=== PATIENT | male | born 1965 | race Two or more races ===

== ENCOUNTER 2017-04-27 07:29 | Emergency (ER) | payer BC ==
[~2017-04-27] VITALS: Ht 167.6 cm; Wt 117.9 kg
[~2017-04-27 07:29] MED LIST: HYDR-971 PO; NAPR-695 PO
[2017-04-27] MEDS ORDERED: KETOROLAC 60 MG/2 ML INJ. IM ONE (08:00)
[2017-04-27] MEDS ORDERED: PRED50TA PO (08:10)
[2017-04-27] MEDS ORDERED: NAPR-683 PO (08:10)
[2017-04-27] MEDS ORDERED: DIAZ5TAB PO (08:10)
--- NOTE | 2017-04-27 08:11 | PHYS DOC ---
Past Medical History Past Medical History: No Pertinent History Past Surgical History: No Surgical History Alcohol Use: Occasionally Drug Use: Marijuana Adult General Chief Complaint Chief Complaint: LOWER EXT PAIN [facility] HPI Patient is a pleasant otherwise healthy 51-year-old obese male who presents with back pain that began several days ago. One year ago he had similar symptoms on the right side of his lower back with radiation to the lateral right thigh. Today symptoms began 7 days ago while at work. He had a sharp pain in the lower back on the left with radiation from the buttocks to the lateral aspect left thigh and left calf. There is no rash, no soft tissue swelling, no direct trauma to his back it is painful just when he bends over and walks. It is described as a lancing pain with no numbness and tingling associated with it. Patient denies any night sweats, fevers, weight loss, UTI symptoms, nausea, vomiting, diarrhea. He further denies any bowel or bladder incontinence. Patient 's pain is moderate at this time. He is not taking anything [id number] to treat his symptoms. It is better with rest and mobility. Differential diagnosis of concern arrival CRAFTI Cauda Equina Renal Stone AAA ruptured Fracture Tumor (TB, metastatic disease) Infection UTI, pyelonephritis, epidural abscess. Patient's spine symptoms have stabilized while they have been evaluated in the department and are appropriate for outpatient work up. No evidence of cauda equina, cord compression, infiltrative, or infectious etiology. Review of Systems Review of Systems Constitutional: Denies fever or chills [] Eyes: Denies change in visual acuity, redness, or eye pain [] HENT: Denies nasal congestion or sore throat [] Respiratory: Denies cough or shortness of breath [] Cardiovascular: No additional information not addressed in HPI [] GI: Denies abdominal pain, nausea, vomiting, bloody stools or diarrhea [] : Denies dysuria or hematuria [] Musculoskeletal: Patient's main complaint is lower back pain with radiation to left buttocks and lateral thigh. Integument: Denies rash or skin lesions [] Neurologic: Denies headache, focal weakness or sensory changes [] Endocrine: Denies polyuria or polydipsia [] All other systems were reviewed and found to be within normal limits, except as documented in this note. Current Medications Current Medications Current Medications Medications (Trade) Dose Ordered Sig/Cesar Start Time Stop Time Status Last Admin Dose Admin Ketorolac Tromethamine (Toradol Im) 60 mg 1X ONCE 04/27/17 08:00 04/27/17 08:01 DC 04/27/17 08:19 60 MG Allergies Allergies Allergies Coded Allergies Type Severity Reaction Last Updated Verified No Known Drug Allergies 04/27/17 No Physical Exam Physical Exam Vital signs recorded on the chart at this time patient within normal limits. Constitutional: Well developed, well nourished, no acute distress, non-toxic appearance. She is obese [] HENT: Normocephalic, atraumatic, bilateral external ears normal, oropharynx moist, no oral exudates, nose normal. [] Eyes: PERRLA, EOMI, conjunctiva normal, no discharge. [] Neck: Normal range of motion, no tenderness, supple, no stridor. [] Cardiovascular:Heart rate regular rhythm, no murmur [] Lungs & Thorax: Bilateral breath sounds clear to auscultation [] Abdomen: Bowel sounds normal, soft, no tenderness, no masses, no pulsatile masses. [] Skin: Warm, dry, no erythema, no rash. [] Back: She has tenderness to palpation of the erector spinae muscles on the left with no midline tenderness to palpation. He also has tenderness in the mid aspect of the gluteus elda over the piriformis muscle. This pain does radiate to the lateral aspect of the thigh. Skin exam demonstrates no rash, no soft tissue trauma no soft tissue swelling. Patient has normal sensation to light touch and proprioception over the L1-S2 distributions of his lower leg. He has normal DTRs +2, regular strength and extension at the hip and flexion at the knee as well as extension at the knee. Patient inserts no dermatomal weakness. Extremities: No tenderness, no cyanosis, no clubbing, ROM intact, no edema. [] Neurologic: Alert and oriented X 3, normal motor function, normal sensory function, no focal deficits noted. [] Psychologic: Affect normal, judgement normal, mood normal. [] Current Patient Data Vital Signs Vital Signs Date Time Temp Pulse Resp B/P (MAP) Pulse Ox O2 Delivery O2 Flow Rate FiO2 04/27/17 07:35 98.2 74 20 95 Room Air 98.2 Lab Values Laboratory Tests Test 04/27/17 08:43 Urine Collection Type Unknown Urine Color Olivia Urine Clarity Clear Urine pH 6.0 Urine Specific Higden 1.025 Urine Protein 30 mg/dL (NEG-TRACE) Urine Glucose (UA) Negative mg/dL (NEG) Urine Ketones (Stick) Negative mg/dL (NEG) Urine Blood Negative (NEG) Urine Nitrite Negative (NEG) Urine Bilirubin Negative (NEG) Urine Urobilinogen Dipstick 1.0 mg/dL (0.2 mg/dL) Urine Leukocyte Esterase Negative (NEG) Urine RBC 0 /HPF (0-2) Urine WBC 0 /HPF (0-4) Urine Squamous Epithelial Cells Few /LPF Urine Bacteria 0 /HPF (0-FEW) EKG EKG [] Radiology/Procedures Radiology/Procedures [] [facility] [address] [place] [address] IMAGING REPORT Signed PATIENT: SUZETTE CRUMP ACCOUNT: [id number] : 1965 LOCATION: ER AGE: 51 SEX: M EXAM STATUS: REG ER ORD. PHYSICIAN: EKATERINA VACA MD REASON: back pain PROCEDURE: CT LUMBAR SPINE WO CONTRAST Indication: Left sciatica. Technique: Axial images and coronal and sagittal reformatted images are provided. No comparison is available. One or more of the following individualized dose reduction techniques were utilized for this examination: 1. Automated exposure control 2. Adjustment of the mA and/or kV according to patient size 3. Use of iterative reconstruction technique Findings: There is no fracture or dislocation. Vertebral body height is maintained. Interspace height is relatively maintained. There are 5 lumbar type vertebral bodies. Degenerative findings would be better evaluated by MRI or postmyelogram CT. They will be estimated below. T12-L1: There is a mild disc bulge and facet hypertrophy with mild foraminal narrowing. L1-L2: There is a disc bulge without definite canal or foraminal compromise. L2-L3: There is a mild disc bulge and facet hypertrophy without canal or foraminal compromise. L3-L4: There is a disc bulge with annular calcification. There is mild facet hypertrophy. There is may be minimal canal stenosis. There is mild foraminal narrowing. L4-L5: There is a diffuse disc bulge. There is facet hypertrophy. There is probably at least mild canal stenosis and lateral recess narrowing. Foraminal narrowing is at least mild to moderate. L5-S1: There is a disc bulge and facet hypertrophy with [id number] bilateral foraminal narrowing. There is atheromatous disease within the iliac arteries, minimal. There is diverticulosis in the included sigmoid colon. Impression: 1. Negative for fracture or dislocation. 2. Degenerative changes throughout the lumbar spine, with suspected canal stenosis at L4-L5 and L3-L4. DICTATED and SIGNED BY: JENA ESCALANTE MD DATE: 04/27/17 0842 CC: EKATERINA VACA MD; NO PCP ~ Course & Med Decision Making Course & Med Decision Making Pertinent Labs and Imaging studies reviewed. (See chart for details) []he presents with lower back pain doubt cauda equina, renal cell carcinoma, or kidney stone, doubt pyonephritis, or UTI, doubt pathologic fracture or tumor or trauma. Patient likely suffering from sciatica. As he is older we will image his lower back to ensure this is not a compression fracture or possibly a pathologic fracture due to cancer. Patient also have imaging of his lower back to exclude any issue with bulging disks. At this time he'll be given an IM dose of Toradol for his discomfort as we wait for results. Patient urinalysis shows no signs of infection or inflammation, doubt pyelonephritis or UTI. Patient's CT scan of the lumbar spine shows multiple areas of disc bulging with some mild canal stenosis. Patient likely will need referral to a spinal surgery or neurosurgery for an evaluation for possible intervention. There is no evidence of cauda equina at this time. discharge: I've spoken with the patient and/or caregivers. I've explained the patient's condition, diagnosis and treatment plan based on information available to me at this time. I've answered the patient's and/or caregivers questions and addressed any concerns. The patient and/or caregivers have a good understanding the patient's diagnosis, condition and treatment plan as can be expected at this point. Vital signs have been stabilized. The patient's condition is stable for discharge from the emergency department. The patient will pursue further outpatient evaluation with her primary care provider or other designated consulting physician as outlined in the discharge instructions. Patient and/or caregivers are agreeable to this plan of care and follow-up instructions have been explained in detail. The patient and/or caregivers have received these instructions in written format and expressed understanding of these discharge instructions. The patient and her caregivers are aware that if any significant change in condition or worsening of symptoms should prompt him to immediately return to this of the closest emergency department. If an emergent department is not readily available I would encourage him to call 911. Dragon Disclaimer Dragon Disclaimer This electronic medical record was generated, in whole or in part, using a voice recognition dictation system. Departure Departure Impression: Primary Impression: Sciatica Disposition: 01 HOME, SELF-CARE Condition: IMPROVED Referrals: NO PCP (PCP) Patient Instructions: Back Pain, Adult, Sciatica Additional Instructions: discharge: I've spoken with the patient and/or caregivers. I've explained the patient's condition, diagnosis and treatment plan based on information available to me at this time. I've answered the patient's and/or caregivers questions and addressed any concerns. The patient and/or caregivers have a good understanding the patient's diagnosis, condition and treatment plan as can be expected at this point. Vital signs have been stabilized. The patient's condition is stable for discharge from the emergency department. The patient will pursue further outpatient evaluation with her primary care provider or other designated consulting physician as outlined in the discharge instructions. Patient and/or caregivers are agreeable to this plan of care and follow-up instructions have been explained in detail. The patient and/or caregivers have received these instructions in written format and expressed understanding of these discharge instructions. The patient and her caregivers are aware that if any significant change in condition or worsening of symptoms should prompt him to immediately return to this of the closest emergency department. If an emergent department is not readily available I would encourage him to call 911. Scripts Naproxen (NAPROSYN) 500 Mg Tablet 1 TAB PO BID, #14 TAB 1 Refill Prov: EKATERINA VACA MD 04/27/17 Prednisone (PREDNISONE) 50 Mg Tablet 1 TAB PO DAILY, #5 TAB Prov: EKATERINA VACA MD 04/27/17 Diazepam (VALIUM) 5 Mg Tablet 5 MG PO TID for MUSCLE SPASMS for 5 Days, #15 TAB Prov: EKATERINA VACA MD 04/27/17 EKATERINA VACA MD Apr 27, 2017 08:11
--- NOTE | 2017-04-27 08:51 | RAD ---
Indication: Left sciatica. Technique: Axial images and coronal and sagittal reformatted images are provided. No comparison is available. One or more of the following individualized dose reduction techniques were utilized for this examination: 1. Automated exposure control 2. Adjustment of the mA and/or kV according to patient size 3. Use of iterative reconstruction technique Findings: There is no fracture or dislocation. Vertebral body height is maintained. Interspace height is relatively maintained. There are 5 lumbar type vertebral bodies. Degenerative findings would be better evaluated by MRI or postmyelogram CT. They will be estimated below. T12-L1: There is a mild disc bulge and facet hypertrophy with mild foraminal narrowing. L1-L2: There is a disc bulge without definite canal or foraminal compromise. L2-L3: There is a mild disc bulge and facet hypertrophy without canal or foraminal compromise. L3-L4: There is a disc bulge with annular calcification. There is mild facet hypertrophy. There is may be minimal canal stenosis. There is mild foraminal narrowing. L4-L5: There is a diffuse disc bulge. There is facet hypertrophy. There is probably at least mild canal stenosis and lateral recess narrowing. Foraminal narrowing is at least mild to moderate. L5-S1: There is a disc bulge and facet hypertrophy with [id number] bilateral foraminal narrowing. There is atheromatous disease within the iliac arteries, minimal. There is diverticulosis in the included sigmoid colon. Impression: 1. Negative for fracture or dislocation. 2. Degenerative changes throughout the lumbar spine, with suspected canal stenosis at L4-L5 and L3-L4.
[2017-04-27 08:53] LABS: BILIRUBIN,URINE NEGATIVE (NEG); GLUCOSE,URINE NEGATIVE (NEG); NITRITE,URINE NEGATIVE (NEG); PROTEIN,URINE 30 mg/dL (NEG-TRACE)
[2017-04-27 08:55] VITALS: BP 162/96
[2017-04-27 08:56] LABS: BACTERIA,URINE 0 /HPF (0-FEW); RBC,URINE 0 /HPF (0-2); SQUAMOUS EPITHELIAL CELL,UR FEW /LPF; WBC,URINE 0 /HPF (0-4)
== END 2017-04-27 09:13 | disposition home or self-care (01) ==
LOC: ER 07:29
DX: M54.42 Lumbago with sciatica, left side (principal); F12.10 Cannabis abuse, uncomplicated
CPT/HCPCS: 72131; 81001; 96372; 99285; J1885

== ENCOUNTER 2017-09-10 13:09 | Emergency (ER) | payer OTHER, BC | END 2017-09-10 13:50 | disposition home or self-care (01) | LOC: ER 13:50 | DX: M54.30 Sciatica, unspecified side (principal); F12.10 Cannabis abuse, uncomplicated | CPT/HCPCS: 99283 ==